=== PATIENT | female | born 1995 | race Caucasian/White ===

== ENCOUNTER 2024-11-27 16:21 | Emergency (ER) | payer MEDICAID, SELFPAY ==
[2024-11-27 16:22] VITALS: BMI 50.3
[2024-11-27 16:37] VITALS: BP 116/88; PULSE 123; RESP 18; TEMP 36.6; O2SAT 96
--- NOTE | 2024-11-27 16:37 | XR_ITS ---
Examination: CT abdomen and pelvis without contrast. Coronal 3-D reconstructions. Sagittal 2-D reconstructions. Date and time of exam:November 27, 20242024 hrs. Indications: Left-sided abdominal pain vomiting and diarrhea beginning today CTDI: vol (mGy): 20.2 DLP: (mGycm): 1121 Technique: Axial images of the abdomen have been obtained, 3 mm slice thickness Intravenous contrast material has not been administered. Low dose protocols were performed. One or more of the following dose reduction techniques were used; automated exposure control, adjustment of the mA and/or KV according to patient size, use of iterative reconstruction technique. Findings: No focal liver or splenic lesions No gallstones No pancreatic or adrenal mass No renal or ureteral calculi, no hydronephrosis 18 mm fat-containing umbilical hernia Normal appendix No bowel obstruction A few loops of fluid distended small bowel No pelvic mass Urinary bladder intact Impression: Mildly fluid distended small bowel loops, consider ileitis, enteritis such as Crohn's disease, clinical correlation advised
--- NOTE | 2024-11-27 16:38 | PD.EDRME ---
Rapid Medical Screening Exam [facility] Arrival date/time: 11/27/24 16:21 29-year-old female with a history of hypertension presents to the emergency room with a chief complaint of nausea, vomiting, diarrhea, weakness, and a near syncopal episode. Patient states she has been dealing with an H. pylori infection, she has been taking antibiotics but her symptoms of gotten worse. Today she presents with 7 out of 10 left upper quadrant abdominal pain. I have greeted and performed a focused initial assessment of this patient. A comprehensive ED assessment and evaluation of the patient, analysis of all test results, and completion of the medical decision making process will be conducted by additional ED providers. Chief Complaint: Abdominal Pain Vital signs: Vital Signs Temperature 98 F 11/27/24 16:37 Pulse Rate 123 H 11/27/24 16:37 Respiratory Rate 18 11/27/24 16:37 Blood Pressure 116/88 H 11/27/24 16:37 Pulse Oximetry (%) 96 11/27/24 16:37 Oxygen Delivery Method Room Air 11/27/24 16:37 Vital signs reviewed by provider: Yes
[2024-11-27] MEDS: ONDANSETRON ODT 4 MG TABRAP PO (16:47)
[2024-11-27 17:54] LABS: Basophils # (Auto) 0.1 Thou/mm3 (0.0-0.2); Basophils % (Auto) 0 % (0-2.5); Eosinophils # (Auto) 0.1 Thou/mm3 (0.0-0.5); Eosinophils % (Auto) 1 % (0-10); Hematocrit 38.9 % (36.0-46.0); Immature Granulocytes % (Auto) 1 % (0-0); Lymphocytes # (Auto) 1.3 Thou/mm3 (1.0-4.8); Lymphocytes % (Auto) 7 % (10-50); Mean Corpuscular HGB Conc 33.4 g/dl (31.0-37.0); Mean Corpuscular Hemoglobin 28.6 pg (25.0-35.0); Mean Corpuscular Volume 86 fL (80-100); Monocytes # (Auto) 0.9 Thou/mm3 (0.0-0.8); Monocytes % (Auto) 5 % (0-12); Neutrophils # (Auto) 15.1 Thou/mm3 (1.8-7.7); Neutrophils % (Auto) 86 % (37-80); Nucleated Red Blood Cell % 0 /100 WBC (0); Platelet Count 436 Thou/mm3 (140-440); RDW Standard Deviation 43.3 fL (36.4-46.3); Red Blood Count 4.54 Miln/mm3 (4.00-5.20); White Blood Count 17.6 Thou/mm3 (3.6-11.0)
--- NOTE | 2024-11-27 18:15 | EDNOTE_ITS ---
ED Abdominal Pain RME/HPI General Chief Complaint: Abdominal Pain Stated complaint: VOMITING AND DIARRHEA, SHARP MID ABD PAIN X 9AM Time seen by provider: 11/27/24 18:13 Arrival date/time: 11/27/24 16:21 RME / HPI RME / HPI narrative: 11/27/24 16:21 29-year-old female with a history of hypertension presents to the emergency room with a chief complaint of nausea, vomiting, diarrhea, weakness, and a near syncopal episode. Patient states she has been dealing with an H. pylori infection, she has been taking antibiotics but her symptoms of gotten worse. Today she presents with 7 out of 10 left upper quadrant abdominal pain. I have greeted and performed a focused initial assessment of this patient. A comprehensive ED assessment and evaluation of the patient, analysis of all test results, and completion of the medical decision making process will be conducted by additional ED providers. This section includes all my notes and documentations, including HPI, PE, and ED course. Fermin Grossman MD HPI: 29yo female with no significant past medical history presents to the ED for a chief complaint of N/V/D x today. Patient states she's been vomiting and having diarrhea throughout the day today, reporting she started having left-sided abdominal pain around 1500. She states she started feeling dizzy and generally weak, so she came in for evaluation. She denies any fever, chills or any other associated symptoms. Reports having a history of H. Pylori 2 years ago. No other complaints reported. ROS: All negative except as documented in HPI. Physical Exam: General: Alert and oriented. No acute distress when remaining still. Eyes: Conjunctivae and lids clear. ENT: No nasal congestion. Neck: Supple. Heart: RRR. Lungs: No respiratory distress. Good air movement. No rhonchi, wheezing, rales. Abdomen: Soft and nontender. Legs: No clubbing, cyanosis, edema. Skin: Warm and dry. Neuro: Alert and oriented X 3. I reviewed all diagnostic test results. My review of the gallbladder US report is no acute findings. My review of the abdominal CT report is colitis. Blood tests and urine tests remarkable for WBC 17.6. At this point, diagnoses include colitis. Treatment here included Zofran and Cipro and Flagyl and two Tylenol #3. She started to feel a lot better. Recommended a trial of outpatient treatment. Based on my best medical judgment, made decision no further evaluation or treatm ent indicated at this time. Patient understands and agrees to the discharge instructions customized and printed, see below. Discharge Instructions from Dr. Grossman: 1. After evaluation, you have colitis, infection of your intestines. 2. Take Cipro and Flagyl to kill the germs causing your infection. 3. Your job is to stay hydrated. Zofran for nausea/vomiting. Increase oral fluid and maintain clear urine. If dark or yellow, increase oral fluid. 4. Tylenol with codeine for severe pain. 5. Some good choices are water (but not only water because it will cause electrolyte abnormalities), sports drinks like Gatorade (with less sugar content), coconut water, chicken stock, and other fluid with electrolytes (like Pedialyte). 6. See your private doctor on 12/01/2024 for recheck and further care. To make sure there is no more serious intra-abdominal condition, ask for help with more investigation not available here in the ER. Such as EGD or scoping the stomach, colonoscopy or scoping the colon, and referral to see optimization engineer. 7. Seek immediate medical care with worsening or with any concerns. Fermin Grossman MD Related Data Home Medications ?Medication ?Instructions ?Recorded ?Confirmed ferrous sulfate 325 mg (65 mg 325 mg PO DAILY 08/03/22 08/08/22 iron) tablet Previous Rx's ?Medication ?Instructions ?Recorded vitamin with calcium 1 tab PO QDAY #30 tabs 0 05/18/21 no.72-iron 27 mg-folic acid 1 mg tablet ( Vitamins Plus Low Iron) docusate sodium 100 mg capsule 100 mg PO BID #60 caps 08/09/22 (Colace) ibuprofen 600 mg tablet 600 mg PO Q6H PRN pain #90 t abs 08/09/22 labetalol 200 mg tablet 200 mg PO BID #60 tabs 08/09 lanolin 50 % topical ointment 1 applic topical TID PRN skin 08/09/22 irritation #15 tubes azithromycin 250 mg tablet See Rx Instructions PO .COM PLEX #6 09/15/22 tabs ibuprofen 600 mg tablet 600 mg PO QID PRN fever or p ain 09/15/22 #30 tabs sulfamethoxazole 800 1 tab PO BID #14 tabs 11/13/ 23 mg-trimethoprim 160 mg tablet (Bactrim DS) ibuprofen 600 mg tablet 600 mg PO Q6H PRN pain #30 t abs 02/19/24 acetaminophen 300 mg-codeine 30 mg 2 tab PO TID PRN pa in #20 tabs 11/27/24 tablet ciprofloxacin HCl 500 mg tablet 500 mg PO BID #10 tabs 11/27/24 (Cipro) metronidazole 500 mg tablet 500 mg PO BID 5 days #10 t abs 11/27/24 ondansetron 4 mg disintegrating 4 mg PO TID PRN nausea and 11/27/24 tablet vomiting 5 days #10 tabs Allergies Allergy/AdvReac Type Severity Reaction Status Date / Time penicillin G Allergy Mild RASH Verified 11/27/24 16:24 Review of Systems Review of Systems Systems Reviewed: All systems reviewed, normal except as documented Past Medical History Past Medical History NEUROLOGIC: Negative Neurological Disorders CARDIAC: Negative Cardiac Disorders or Congestive Heart Failure RESPIRATORY: Negative Chronic Obstructive Pulmonary Disease (COPD) or Asthma GASTROINTESTINAL: Negative Gastrointestinal Disorders GENITOURINARY: Negative Genitourinary Disorders or Renal Disease MUSCULOSKELETAL: Negative Musculoskeletal Disorders ENDOCRINE: Negative Endocrine Disorders, Diabetes Mellitus Type 1 or Diabetes Mellitus Type 2 HEMATOLOGIC: Positive Anemia; Negative Blood Disorders or Sickle Cell Disease OTHER HISTORY: Negative Autoimmune Disease, Anesthesia Reactions, Organ Transplant, MRSA, Clostridium Difficile or Cancer Family History FAMILY HISTORY: Positive Family Cardiac Disorders; Negative Family Psychiatric Problems, Family Respiratory Disorders, Family Gastrointestinal Problems, Family Cancer, Family Surgery or Family Anesthesia Reaction Surgical History SURGICAL: Negative Cardiac Surgery, Endocrine Surgery, Ear Surgery, Abdominal Surgery, Nephrectomy, Neurologic Surgery, Mastectomy, Section or Organ Transplant Social History SMOKING STATUS: Never smoker ED Exam Narrative Physical exam: As noted in HPI. Course Quality Measures none Orders Category Date Time Status CT abdomen pelvis wo con Stat Exams 11/27/24 16:37 Completed US gall bladder Stat Exams 11/27/24 18:47 Completed CBC Stat Lab 11/27/24 17:40 Completed CMP [Comprehensive Metabolic Panel] Stat Lab 11/27/24 17:40 Completed HCG Qualitative,Urine Stat Lab 11/27/24 20:35 Completed HCG,Qualitative Serum Stat Lab 11/27/24 17:40 Completed Lipase Stat Lab 11/27/24 17:40 Completed Magnesium Stat Lab 11/27/24 17:40 Completed UA [Urinalysis] Stat Lab 11/27/24 20:35 Completed Urine Culture Stat Lab 11/27/24 20:35 Received ACETAMINOPHEN w/COD 300-30 [Tylenol w/Cod #3] Med 11/27/24 20:58 Discontinued 2 tab PO X1 ONE Ciprofloxacin HCl [Ciprofloxacin] Med 11/27/24 20:58 Discontinued 500 mg PO X1 ONE Ondansetron Odt [Zofran Odt] Med 11/27/24 16:37 Discontinued 4 mg PO X1 ONE metroNIDAZOLE [Flagyl] Med 11/27/24 20:58 Discontinued 500 mg PO X1 ONE Vital Signs Vital signs: Vital Signs Temperature 98 F 11/27/24 16:37 Pulse Rate 123 H 11/27/24 16:37 Respiratory Rate 18 11/27/24 16:37 Blood Pressure 116/88 H 11/27/24 16:37 Pulse Oximetry (%) 96 11/27/24 16:37 Oxygen Delivery Method Room Air 11/27/24 16:37 Abdominal Pain MDM MDM Narrative MDM Narrative:: Scribe Attestation: 11/27/24 - Tiffany Hernandez am scribing for and in the presence of Dr. Grossman. Patient data External records reviewed:: [facility] previous records (Per chart review, patient was seen here on 02/19/24 for dysmenorrhea.) Clinical information provided by:: patient Social determinants that could affect healthcare access:: none Patient has the following chronic illnesses:: none How is presenting disease/condition affected by chronic disease/condition?: no chronic disease Evaluation data The following diagnostics were reviewed and interpreted by me:: lab results Lab and/or radiology exams considered but not ordered:: none Interpretation Summary: Colitis Medications / Prescriptions Medications or Prescriptions considered but not ordered:: none Medication administrations:: Medication Administration History Discontinued Medications Acetaminophen/Codeine Phosphate (Acetaminophen W/Cod 300-30 Tablet) 2 tab PO X1 ONE Stop: 11/27/24 20:59 Last Admin: 11/27/24 21:10 Dose: 2 tab Documented By: MARSHAL Ciprofloxacin (Ciprofloxacin Hcl 250 Mg Tablet) 500 mg PO X1 ONE Stop: 11/27/24 20:59 Last Admin: 11/27/24 21:09 Dose: 500 mg Documented By: MARSHAL Metronidazole (Metronidazole 250 Mg Tablet) 500 mg PO X1 ONE Stop: 11/27/24 20:59 Last Admin: 11/27/24 21:11 Dose: 500 mg Documented By: OA Ondansetron HCl (Ondansetron Odt 4 Mg Tabrap) 4 mg PO X1 ONE; Protocol Stop: 11/27/24 16:38 Last Admin: 11/27/24 16:47 Dose: 4 mg Documented By: MARSHAL Sethi and Flagyl and two Tylenol #3 Consultations Consultation(s) initiated? (list below): No Diagnosis Differential diagnosis abdominal pain: acute appendicitis, calculus of kidney, diverticulitis, endometriosis, gastroenteritis, pancreatitis and small bowel obstruction Most likely diagnosis given after review of the tests above:: Colitis Admission Indicated Admission indicated?: not indicated Explain why admission is indicated or not indicated:: No criteria for admission. Admission Request Was there a request for admission?: No Disposition Plan Disposition Plan: Discharge Discharge Attestation Discharge Attestation: The patient and all family members were given an opportunity to ask questions and understood the discharge instructions. Discharge instructions specifically effects, indications for sooner follow up or return to the emergency department, and the expected course of current diagnosis. Patient condition: Stable Discharge Plan Plan Patient Disposition: HOME (Self Care) Prescriptions/Referrals Prescriptions/Med Rec: New metronidazole 500 mg tablet 500 mg PO BID 5 Days Qty: 10 0RF acetaminophen-codeine 300-30 mg tablet 2 tab PO TID MDD 6 PRN (Reason: pain) Qty: 20 0RF ciprofloxacin HCl [Cipro] 500 mg tablet 500 mg PO BID Qty: 10 0RF ondansetron 4 mg tablet,disintegrating 4 mg PO TID PRN (Reason: nausea and vomiting) 5 Days Qty: 10 0RF No Action Vitamin Plus Low Iron 27 mg iron- 1 mg tablet 1 tab PO QDAY Qty: 30 2RF ferrous sulfate 325 mg (65 mg iron) tablet 325 mg PO DAILY Patient Comments: TAKE 1 TABLET BY MOUTH TWICE A DAY labetalol 200 mg tablet 200 mg PO BID Qty: 60 0RF docusate sodium [Colace] 100 mg capsule 100 mg PO BID Qty: 60 0RF ibuprofen 600 mg tablet 600 mg PO Q6H PRN (Reason: pain) Qty: 90 0RF lanolin 50 % ointment 1 applic topical TID PRN (Reason: skin irritation) Qty: 15 0RF azithromycin 250 mg tablet See Rx Instructions .ROUTE .COMPLEX Qty: 6 0RF Rx Instructions: For 250 mg dose pack: take 500 mg today (day 1), then 250 mg for 4 days (days 2-5) ibuprofen 600 mg tablet 600 mg PO QID PRN (Reason: fever or pain) Qty: 30 0RF sulfamethoxazole-trimethoprim [Bactrim DS] 800-160 mg tablet 1 tab PO BID Qty: 14 0RF ibuprofen 600 mg tablet 600 mg PO Q6H PRN (Reason: pain) Qty: 30 0RF Referrals: Daniel OLMOS)Angelica MD [Primary Care Provider] - In 1 week Problem List Clinical Impression: Colitis Patient/Caregiver Discharge Instructions Discharge Activity: activity as tolerated Education Materials: ED Gastroenteritis, Noninfectious, ED Gastroenteritis, Viral (Adult) Additional Instructions: Discharge Instructions from Dr. Grossman: 1. After evaluation, you have colitis, infection of your intestines. 2. Take Cipro and Flagyl to kill the germs causing your infection. 3. Your job is to stay hydrated.? Zofran for nausea/vomiting.? Increase oral fluid and maintain clear urine.? If dark or yellow, increase oral fluid. 4. Tylenol with codeine for severe pain. 5. Some good choices are water (but not only water because it will cause electrolyte abnormalities), sports drinks like Gatorade (with less sugar content), coconut water, chicken stock, and other fluid with electrolytes (like Pedialyte). 6. See your private doctor on 12/01/2024 for recheck and further care. To make sure there is no more serious intra-abdominal condition, ask for help with more investigation not available here in the ER. Such as EGD or scoping the stomach, colonoscopy or scoping the colon, and referral to see optimization engineer. 7. Seek immediate medical care with worsening or with any concerns. Print Language: Citizen Of [place] Stand Alone Forms: [employer]ha Award Info., Patient Portal Info Letter
[2024-11-27 18:19] LABS: Alanine Aminotransferase 13 U/L (10-49); Albumin/Globulin Ratio 1.4 (1.2-2.2); Alkaline Phosphatase 89 U/L (46-116); Anion Gap 9 (7-16); Aspartate Amino Transferase 14 U/L (0-34); BUN/Creatinine Ratio 20 Ratio (12-20); Bilirubin,Total 0.6 mg/dL (0.3-1.2); Blood Urea Nitrogen 18 mg/dL (9-23); Calcium 10.1 mg/dL (8.3-10.6); Calcium (Corrected) 10.1 mg/dL (8.5-10.1); Carbon Dioxide 21.8 mMol/L (20.0-31.0); Chloride 108 mMol/L (98-107); Creatinine (Component) 0.9 mg/dL (0.6-1.3); Estimated Creatinine Clearance 115.4 mL/min (>60); Globulin 3.6 gm/dL (2.3-3.5); Glucose 100 mg/dL (74-106); Lipase 40 U/L (12-53); Osmolality,Calculated 279 (275-295); Potassium 4.2 mMol/L (3.4-5.1); Sodium 139 mMol/L (136-145); Total Protein 8.6 gm/dL (5.7-8.2); eGFR > 60 See Note
--- NOTE | 2024-11-27 18:47 | XR_ITS ---
Examination: Abdomen sonogram, Limited Date and time of exam: November 27, 2024 1933 hrs. Indications: Onset right upper abdominal tenderness and pain today Technique: Real-time hinds scale transabdominal sonographic images of the upper abdomen obtained. Findings: Normal gallbladder Normal common bile duct 0.3 cm Pancreatic head 2.9 cm Hepatomegaly 20.1 cm fatty infiltration Normal hepatopedal portal venous flow Patent IVC Impression: Normal gallbladder Normal common bile duct Mild hepatomegaly, fatty liver
[2024-11-27 19:22] LABS: HCG,Qualitative Serum Negative
[2024-11-27 19:30] LABS: Magnesium 1.8 mg/dL (1.6-2.6)
[2024-11-27 20:48] LABS: Collection Type, Urine Clean Catch
[2024-11-27] MEDS: CIPROFLOXACIN HCL 250 MG TABLET 500 MG PO (21:09)
[2024-11-27] MEDS: ACETAMINOPHEN w/COD 300-30 TABLET 2 TAB PO (21:10)
[2024-11-27] MEDS: metroNIDAZOLE 250 MG TABLET 500 MG PO (21:11)
[2024-11-27 21:29] LABS: HCG Qualitative,Urine Negative
[2024-11-27 21:30] LABS: Bacteria,Urine Rare; Bilirubin,Urine Negative (Negative); Blood,Urine 2+ (Negative); Clarity,Urine Turbid (Clear/Hazy); Color,Urine Yellow (Lt Yel-Yel); Glucose, Urine Negative (Negative); Ketones,Urine Negative (Negative); Leukocyte Esterase,Urine Positive (Negative); Nitrite,Urine Negative (Negative); Protein,Urine 2+ (Neg - Trace); RBC,Urine 13 /hpf (0-3); Specific Gravity,Urine 1.032 (1.001-1.035); Squamous Epithelial Cell,Urine 16 /hpf (0-5); Urobilinogen,Urine Negative mg/dL (0.0-1.0); WBC,Urine 8 /hpf (0-5)
[2024-11-27 21:34] LABS: Sperm,Urine Present
== END 2024-11-27 23:44 | disposition home or self-care (01) ==
PROVIDERS: Nurse Practitioner Family; Emergency Provider Emergency Medicine; PCP Pediatrics
DX: K52.9 Noninfective gastroenteritis and colitis, unspecified (principal); Z86.19 Personal history of other infectious and parasitic diseases; Z88.0 Allergy status to penicillin
CPT/HCPCS: 36415; 74176; 76705; 80053; 81001; 81025; 83690; 83735; 84703; 85025; 87077; 87086; 87186; 99284; Q0162; A9270

== ENCOUNTER 2025-02-24 14:23 | Emergency (ER) | payer MEDICAID, SELFPAY ==
[2025-02-24 14:28] VITALS: BMI 34.5
[2025-02-24 14:47] VITALS: BP 123/83; PULSE 88; RESP 18; TEMP 36.9; O2SAT 98
--- NOTE | 2025-02-24 15:08 | PD.EDRME ---
Rapid Medical Screening Exam [facility]ME Arrival date/time: 02/24/25 14:23 This is a 29-year-old female that comes in with complaints of left flank pain that started today. Patient denies urinary issues. Patient states that pain starts in the lower left abdomen and radiates to the her back. Patient reports some diarrhea. Patient states that she has had this pain before and was told that she had an intestinal infection. I have greeted and performed a focused initial assessment of this patient. Initial appropriate labs ordered at this time. A comprehensive ED assessment and evaluation of the patient and analysis of all test and completion of medical decision making process will be conducted by additional ED provider. Chief Complaint: Nausea/Vomiting/Diarrhea Time Seen by Provider: 02/24/25 14:37 Vital signs: Vital Signs Temperature 98.5 F 02/24/25 14:47 Pulse Rate 88 02/24/25 14:47 Respiratory Rate 18 02/24/25 14:47 Blood Pressure 123/83 02/24/25 14:47 Pulse Oximetry (%) 98 02/24/25 14:47 Oxygen Delivery Method Room Air 02/24/25 14:47
[2025-02-24 15:34] LABS: Collection Type, Urine Voided
[2025-02-24 15:37] LABS: Basophils # (Auto) 0.1 Thou/mm3 (0.0-0.2); Basophils % (Auto) 1 % (0-2.5); Eosinophils # (Auto) 0.1 Thou/mm3 (0.0-0.5); Eosinophils % (Auto) 1 % (0-10); Hematocrit 32.8 % (36.0-46.0); Hemoglobin 11.4 g/dL (12.0-16.0); Immature Granulocytes % (Auto) 0 % (0-0); Immature Granulocytes Auto 0.03 Thou/mm3 (0.00-0.00); Lymphocytes # (Auto) 3.4 Thou/mm3 (1.0-4.8); Lymphocytes % (Auto) 31 % (10-50); Mean Corpuscular HGB Conc 34.8 g/dl (31.0-37.0); Mean Corpuscular Hemoglobin 29.3 pg (25.0-35.0); Mean Corpuscular Volume 84 fL (80-100); Monocytes # (Auto) 0.6 Thou/mm3 (0.0-0.8); Monocytes % (Auto) 5 % (0-12); Neutrophils # (Auto) 6.6 Thou/mm3 (1.8-7.7); Neutrophils % (Auto) 61 % (37-80); Nucleated Red Blood Cell % 0 /100 WBC (0); Platelet Count 368 Thou/mm3 (140-440); RDW Standard Deviation 42.7 fL (36.4-46.3); Red Blood Count 3.89 Miln/mm3 (4.00-5.20); White Blood Count 10.8 Thou/mm3 (3.6-11.0)
[2025-02-24 15:51] LABS: Bilirubin,Urine Negative (Negative); Blood,Urine 1+ (Negative); Clarity,Urine Turbid (Clear/Hazy); Color,Urine Yellow (Lt Yel-Yel); Culture Indicated,Urine Not Indicated; Glucose, Urine Negative (Negative); Ketones,Urine Negative (Negative); Leukocyte Esterase,Urine Positive (Negative); Nitrite,Urine Negative (Negative); Protein,Urine Trace (Neg - Trace); RBC,Urine 7 /hpf (0-3); Specific Gravity,Urine 1.034 (1.001-1.035); Squamous Epithelial Cell,Urine 25 /hpf (0-5); Urobilinogen,Urine Negative mg/dL (0.0-1.0); WBC,Urine 10 /hpf (0-5)
[2025-02-24 15:55] LABS: Alanine Aminotransferase 21 U/L (10-49); Albumin, Serum 4.6 gm/dL (3.5-5.0); Albumin/Globulin Ratio 1.8 (1.2-2.2); Alkaline Phosphatase 76 U/L (46-116); Anion Gap 11 (7-16); Aspartate Amino Transferase 20 U/L (0-34); BUN/Creatinine Ratio 15 Ratio (12-20); Bilirubin,Total 0.3 mg/dL (0.3-1.2); Blood Urea Nitrogen 12 mg/dL (9-23); Calcium 8.8 mg/dL (8.3-10.6); Calcium (Corrected) 8.8 mg/dL (8.5-10.1); Chloride 108 mMol/L (98-107); Creatinine (Component) 0.8 mg/dL (0.6-1.3); Estimated Creatinine Clearance 104.5 mL/min (>60); Globulin 2.6 gm/dL (2.3-3.5); Glucose 100 mg/dL (74-106); Lipase 51 U/L (12-53); Osmolality,Calculated 286 (275-295); Potassium 4.2 mMol/L (3.4-5.1); Sodium 144 mMol/L (136-145); Total Protein 7.2 gm/dL (5.7-8.2); eGFR > 60 See Note
[2025-02-24 16:26] LABS: HCG,Qualitative Serum Negative
[2025-02-24 16:56] VITALS: BP 130/87; PULSE 90; RESP 18; TEMP 36.8; O2SAT 100
--- NOTE | 2025-02-24 18:34 | XR_ITS ---
Examination: CT abdomen and pelvis without contrast. Coronal 3-D reconstructions. Sagittal 2-D reconstructions. Date and time of exam:February 24, 2025 9008 hours Comparison November 27, 2024 INDICATIONS: Onset left flank pain today CTDI: vol (mGy): 18.9 DLP: (mGycm): 1069 Technique: Axial images of the abdomen have been obtained, 3 mm slice thickness Intravenous contrast material has not been administered. Low dose protocols were performed. One or more of the following dose reduction techniques were used; automated exposure control, adjustment of the mA and/or KV according to patient size, use of iterative reconstruction technique. Findings: Hepatomegaly, 22 cm, no focal liver or splenic lesions Contracted gallbladder No pancreatic or adrenal mass No renal or ureteral calculi, no hydronephrosis Aorta normal size Normal appendix No bowel obstruction Tiny fat-containing umbilical hernia No diverticulitis No pelvic mass Moderate disc narrowing L5-S1 IMPRESSION: Hepatomegaly, 22 cm No renal or ureteral calculi, no hydronephrosis. Normal appendix No bowel obstruction or diverticulitis
--- NOTE | 2025-02-24 18:37 | PD.EDBACK ---
ED Back Injury Pain RME/HPI General Chief Complaint: Nausea/Vomiting/Diarrhea Stated Complaint: DIARRHEA, ABD PAIN Time Seen by Provider: 02/24/25 14:37 Arrival date/time: 02/24/25 14:23 RME / HPI RME / HPI Narrative: 02/24/25 14:23 This is a 29-year-old female that comes in with complaints of left flank pain that started today. Patient denies urinary issues. Patient states that pain starts in the lower left abdomen and radiates to the her back. Patient reports some diarrhea. Patient states that she has had this pain before and was told that she had an intestinal infection. I have greeted and performed a focused initial assessment of this patient. Initial appropriate labs ordered at this time. A comprehensive ED assessment and evaluation of the patient and analysis of all test and completion of medical decision making process will be conducted by additional ED provider. This section includes all my notes and documentations, including HPI, PE, and ED course. Fermin Grossman MD HPI: 29 y/o female presents to ED c/o left flank pain and several diarrhea all day today. No nausea or vomiting. Eating normally. No history of abdominal surgery. No urinary symptoms. Deep breathing and certain movement worsens the pain. Has 3 groin boys at home. No other complaints. ROS: All negative except as documented in HPI. Physical Exam: General: Alert and oriented. No acute distress when remaining still. Eyes: Conjunctivae and lids clear. ENT: No nasal congestion. Neck: Supple. Heart: RRR. Lungs: No respiratory distress. Good air movement. No rhonchi, wheezing, rales. Abdomen: Soft with equivocal left flank tenderness. Normal bowel sounds. No distension. No rebound or guarding. Back: No CVA tenderness. Skin: Warm and dry. Neuro: Alert and oriented X 3. I reviewed all diagnostic test results. My review of the Abdomen/Pelvis CT report is no acute findings. Blood tests and urine tests unremarkable. At this point, diagnoses include musculoskeletal abdominal pain. Treatment here included Tylenol with Codeine. Significant improvement noted. Based on my best medical judgment, made decision no further evaluation or treatment indicated at this time. Patient understands and agrees to the discharge instructions customized and printed, see below. Discharge Instructions from Dr. Grossman printed for you: 1. After extensive evaluation, there is no abdominal emergency. Such as appendicitis needing urgent surgery. And there is no other very serious condition, such as kidney infection or passing kidney stone. 2. Your pain is most likely originating from the outside and not from an internal organ. Abdominal wall muscle strain is common, tears in the small muscle fibers. Can take several weeks to heal completely. 3. Activity as tolerated. Apply ice or heat if helpful. Ibuprofen 800 mg every 6-8 hours today and tomorrow to decrease inflammation then as needed. Lidocaine patches and cyclobenzaprine as needed. 4. See a private doctor next week if not significantly better. 5. Seek immediate medical care with worsening or with any concerns. Fermin Grossman MD Related Data Home Medications ?Medication ?Instructions ?Recorded ?Confirmed ferrous sulfate 325 mg (65 mg 325 mg PO DAILY 08/03/22 08/08/22 iron) tablet Previous Rx's ?Medication ?Instructions ?Recorded vitamin with calcium 1 tab PO QDAY #30 tabs 05/18/21 no.72-iron 27 mg-folic acid 1 mg tablet ( Vitamins Plus Low Iron) docusate sodium 100 mg capsule 100 mg PO BID #60 caps 08/09/22 (Colace) ibuprofen 600 mg tablet 600 mg PO Q6H PRN pain #90 tabs 08/09/22 labetalol 200 mg tablet 200 mg PO BID #60 tabs 08/09/22 lanolin 50 % topical ointment 1 applic topical TID PRN skin 08/09/22 irritation #15 tubes azithromycin 250 mg tablet See Rx Instructions PO .COMPLEX #6 09/15/22 tabs ibuprofen 600 mg tablet 600 mg PO QID PRN fever or pain 09/15/22 #30 tabs sulfamethoxazole 800 1 tab PO BID #14 tabs 08/27/23 mg-trimethoprim 160 mg tablet (Bactrim DS) ibuprofen 600 mg tablet 600 mg PO Q6H PRN pain #30 tabs 02/19/24 acetaminophen 300 mg-codeine 30 mg 2 tab PO TID PRN pain #20 tabs 11/27/24 tablet ciprofloxacin HCl 500 mg tablet 500 mg PO BID #10 tabs 11/27/24 (Cipro) cyclobenzaprine 5 mg tablet 5 mg PO TID PRN muscle spasm #15 02/24/25 tabs ibuprofen 800 mg tablet 800 mg PO Q8H PRN pain #30 tabs 02/24/25 lidocaine 5 % topical patch 2 patch topical QDAY PRN pain #30 02/24/25 (Lidoderm) ea Allergies Allergy/AdvReac Type Severity Reaction Status Date / Time penicillin G Allergy Mild RASH Verified 02/24/25 14:29 Review of Systems Review of Systems Systems Reviewed: All systems reviewed, normal except as documented Past Medical History Past Medical History HEMATOLOGIC: Positive Anemia Family History FAMILY HISTORY: Positive Family Cardiac Disorders ED Exam Narrative Physical exam: Refer to HPI above. Course Quality Measures none Orders Category Date Time Status CT abdomen pelvis wo con Stat Exams 02/24/25 18:34 Completed CBC Stat Lab 02/24/25 15:17 Completed Comprehensive Metabolic Panel Stat Lab 02/24/25 15:17 Completed HCG,Qualitative Serum Stat Lab 02/24/25 15:17 Completed Lipase Stat Lab 02/24/25 15:17 Completed Urinalysis, C/S if Indicated Stat Lab 02/24/25 15:15 Completed ACETAMINOPHEN w/COD 300-30 [Tylenol w/Cod #3] Med 02/24/25 18:33 Discontinued 2 tab PO X1 ONE Vital Signs Vital signs: Vital Signs Temperature 98.5 F 02/24/25 14:47 Pulse Rate 88 02/24/25 14:47 Respiratory Rate 18 02/24/25 14:47 Blood Pressure 123/83 02/24/25 14:47 Pulse Oximetry (%) 98 02/24/25 14:47 Oxygen Delivery Method Room Air 02/24/25 14:47 Back Pain / Injury MDM Narrative MDM Narrative:: Scribe Attestation: Marlee Hernandez am scribing for and in the presence of Dr. Grossman. Provider Notation: Although this document has been carefully reviewed, there may still be some phonetic and other typographical errors.? These errors are purely grammatical due to imperfections in the software program and should not be construed in any way to? compromise the substance of the patient's medical care during this visit. 29 y/o female presents to ED c/o left flank pain and severe diarrhea x 6 hours. Patient data External records reviewed:: [facility] previous records (Reviewed prior ED records from 11/27/24. Patient was seen for Colitis.) Clinical information provided by:: patient Social determinants that could affect healthcare access:: none Patient has the following chronic illnesses:: Anemia How is presenting disease/condition affected by chronic disease/condition?: uneffected by Evaluation data The following diagnostics were reviewed and interpreted by me:: lab results and radiology exam(s) Lab and/or radiology exams considered but not ordered:: None Interpretation Summary: I reviewed all diagnostic test results. My review of the Abdomen/Pelvis CT report is no acute findings. Blood tests and urine tests unremarkable. Medications / Prescriptions Medications or Prescriptions considered but not ordered:: None Medication administrations:: Medication Administration History Discontinued Medications Acetaminophen/Codeine Phosphate (Acetaminophen W/Cod 300-30 Tablet) 2 tab PO X1 ONE Stop: 02/24/25 18:34 Last Admin: 02/24/25 19:26 Dose: 2 tab Documented By: WILL Tylenol with Codeine Consultations Consultation(s) initiated? (list below): No Diagnosis Differential diagnosis back pain/injury: lumbar radiculopathy, sciatica, strain of lumbar region, renal colic, pyelonephritis and other (Abdominal wall muscle strain, PUD, gastritis, GERD) Most likely diagnosis given after review of the tests above:: Abdominal musculoskeletal pain Admission Indicated Admission indicated?: not indicated Explain why admission is indicated or not indicated:: With significant improvement, there was no indication for admission. Admission Request Was there a request for admission?: No Disposition Plan Disposition Plan: Discharge Discharge Attestation Discharge Attestation: The patient and all family members were given an opportunity to ask questions and understood the discharge instructions. Discharge instructions specifically effects, indications for sooner follow up or return to the emergency department, and the expected course of current diagnosis. Patient condition: Stable Discharge Plan Plan Patient Disposition: HOME (Self Care) Prescriptions/Referrals Prescriptions/Med Rec: New ibuprofen 800 mg tablet 800 mg PO Q8H PRN (Reason: pain) Qty: 30 0RF lidocaine [Lidoderm] 5 % adhesive patch,medicated 2 patch topical QDAY PRN (Reason: pain) Qty: 30 0RF Rx Instructions: leave on most painful area for up to 12 hrs cyclobenzaprine 5 mg tablet 5 mg PO TID PRN (Reason: muscle spasm) Qty: 15 0RF No Action Vitamin Plus Low Iron 27 mg iron- 1 mg tablet 1 tab PO QDAY Qty: 30 2RF ferrous sulfate 325 mg (65 mg iron) tablet 325 mg PO DAILY Patient Comments: TAKE 1 TABLET BY MOUTH TWICE A DAY labetalol 200 mg tablet 200 mg PO BID Qty: 60 0RF docusate sodium [Colace] 100 mg capsule 100 mg PO BID Qty: 60 0RF ibuprofen 600 mg tablet 600 mg PO Q6H PRN (Reason: pain) Qty: 90 0RF lanolin 50 % ointment 1 applic topical TID PRN (Reason: skin irritation) Qty: 15 0RF azithromycin 250 mg tablet See Rx Instructions .ROUTE .COMPLEX Qty: 6 0RF Rx Instructions: For 250 mg dose pack: take 500 mg today (day 1), then 250 mg for 4 days (days 2-5) ibuprofen 600 mg tablet 600 mg PO QID PRN (Reason: fever or pain) Qty: 30 0RF sulfamethoxazole-trimethoprim [Bactrim DS] 800-160 mg tablet 1 tab PO BID Qty: 14 0RF ibuprofen 600 mg tablet 600 mg PO Q6H PRN (Reason: pain) Qty: 30 0RF acetaminophen-codeine 300-30 mg tablet 2 tab PO TID MDD 6 PRN (Reason: pain) Qty: 20 0RF ciprofloxacin HCl [Cipro] 500 mg tablet 500 mg PO BID Qty: 10 0RF Referrals: Chidi Lowery MD [Primary Care Provider] - In 1 week Problem List Clinical Impression: Abdominal pain Patient/Caregiver Discharge Instructions Discharge Activity: activity as tolerated Education Materials: ED Muscle Strain, Abdomen Additional Instructions: Discharge Instructions from Dr. Grossman printed for you: 1. After extensive evaluation, there is no abdominal emergency. Such as appendicitis needing urgent surgery. And there is no other very serious condition, such as kidney infection or passing kidney stone. 2. Your pain is most likely originating from the outside and not from an internal organ. Abdominal wall muscle strain is common, tears in the small muscle fibers. Can take several weeks to heal completely. 3. Activity as tolerated. Apply ice or heat if helpful. Ibuprofen 800 mg every 6-8 hours today and tomorrow to decrease inflammation then as needed. Lidocaine patches and cyclobenzaprine as needed. 4. See a private doctor next week if not significantly better. 5. Seek immediate medical care with worsening or with any concerns. Print Language: Estonian Stand Alone Forms: [employer] Award Info., Patient Portal Info Letter
[2025-02-24] MEDS: ACETAMINOPHEN w/COD 300-30 TABLET 2 TAB PO (19:26)
== END 2025-02-24 20:40 | disposition home or self-care (01) ==
PROVIDERS: Nurse Practitioner Family; Emergency Provider Emergency Medicine; PCP Family Medicine
DX: R10.9 Unspecified abdominal pain (principal); R19.7 Diarrhea, unspecified
CPT/HCPCS: 36415; 74176; 80053; 81001; 83690; 84703; 85025; 99284; A9270

== ENCOUNTER 2025-03-03 18:45 | Emergency (ER) | payer MEDICAID, SELFPAY ==
[2025-03-03 18:46] VITALS: BMI 44.8
--- NOTE | 2025-03-03 19:07 | XR_ITS ---
Examination: Knee, left , 3 views Technique: Knee AP, lateral, oblique 3 views Date and time of exam: March 03, 2025 1917 hours INDICATIONS: Patient fell today with injury to the knee, knee pain. FINDINGS: No acute fracture No dislocation No foreign body IMPRESSION: No acute fracture
[2025-03-03 19:35] VITALS: BP 136/70; PULSE 80; RESP 18; TEMP 36.9; O2SAT 99
--- NOTE | 2025-03-03 19:52 | PD.EDLOWEX ---
Lower Extremity Injury RME/HPI General Chief Complaint: Extremity Injury, Lower Stated Complaint: LEFT KNEE PAIN S/P INJURY, FELL, NO LOC Time Seen by Provider: 03/03/25 19:45 Arrival date/time: 03/03/25 18:45 29F with no significant PMH presents to ED with L knee pain after she jumped off a bleacher and landed on her feet. L knee felt like it dislocated, but then went back into place (3rd time this has ever happened). Limitations: no limitations Related Data Home Medications ?Medication ?Instructions ?Recorded ?Confirmed ferrous sulfate 325 mg (65 mg 325 mg PO DAILY 08/03/22 08/08/22 iron) tablet Previous Rx's ?Medication ?Instructions ?Recorded vitamin with calcium 1 tab PO QDAY #30 tabs 05/18/21 no.72-iron 27 mg-folic acid 1 mg tablet ( Vitamins Plus Low Iron) docusate sodium 100 mg capsule 100 mg PO BID #60 caps 08/09/22 (Colace) ibuprofen 600 mg tablet 600 mg PO Q6H PRN pain #90 tabs 08/09/22 labetalol 200 mg tablet 200 mg PO BID #60 tabs 08/09/22 lanolin 50 % topical ointment 1 applic topical TID PRN skin 08/09/22 irritation #15 tubes azithromycin 250 mg tablet See Rx Instructions PO .COMPLEX #6 09/15/22 tabs ibuprofen 600 mg tablet 600 mg PO QID PRN fever or pain 09/15/22 #30 tabs sulfamethoxazole 800 1 tab PO BID #14 tabs 08/27/23 mg-trimethoprim 160 mg tablet (Bactrim DS) ibuprofen 600 mg tablet 600 mg PO Q6H PRN pain #30 tabs 02/19/24 acetaminophen 300 mg-codeine 30 mg 2 tab PO TID PRN pain #20 tabs 11/27/24 tablet ciprofloxacin HCl 500 mg tablet 500 mg PO BID #10 tabs 11/27/24 (Cipro) cyclobenzaprine 5 mg tablet 5 mg PO TID PRN muscle spasm #15 02/24/25 tabs ibuprofen 800 mg tablet 800 mg PO Q8H PRN pain #30 tabs 02/24/25 lidocaine 5 % topical patch 2 patch topical QDAY PRN pain #30 02/24/25 (Lidoderm) ea Allergies Allergy/AdvReac Type Severity Reaction Status Date / Time penicillin G Allergy Mild RASH Verified 02/24/25 14:29 Review of Systems Review of Systems Systems Reviewed: All systems reviewed, normal except as documented Constitutional Constitutional: Reports system reviewed and no additional complaints, except as documented, Denies fever(s) and Denies headache(s) ENT Ears, Nose, Mouth, and Throat: Denies disequilibrium and Denies headache(s) Cardiovascular Cardiovascular: Reports system reviewed and no additional complaints, except as documented, Denies chest pain and Denies dyspnea Respiratory Respiratory: Reports system reviewed and no additional complaints, except as documented, Denies cough and Denies dyspnea Gastrointestinal Gastrointestinal: Reports system reviewed and no additional complaints, except as documented, Denies abdominal pain, Denies nausea and Denies vomiting Musculoskeletal Musculoskeletal: Reports as per HPI, Reports arthralgias and Reports joint swelling Neurologic Neurologic: Reports system reviewed and no additional complaints, except as documented, Denies confusion, Denies disequilibrium and Denies headache(s) Psychiatric Psychiatric: Denies confusion Past Medical History Past Medical History NEUROLOGIC: Negative Neurological Disorders CARDIAC: Negative Cardiac Disorders or Congestive Heart Failure RESPIRATORY: Negative Chronic Obstructive Pulmonary Disease (COPD) or Asthma GASTROINTESTINAL: Negative Gastrointestinal Disorders GENITOURINARY: Negative Genitourinary Disorders or Renal Disease MUSCULOSKELETAL: Negative Musculoskeletal Disorders ENDOCRINE: Negative Endocrine Disorders, Diabetes Mellitus Type 1 or Diabetes Mellitus Type 2 HEMATOLOGIC: Positive Anemia; Negative Blood Disorders or Sickle Cell Disease OTHER HISTORY: Negative Autoimmune Disease, Anesthesia Reactions, Organ Transplant, MRSA, Clostridium Difficile or Cancer Family History FAMILY HISTORY: Positive Family Cardiac Disorders; Negative Family Psychiatric Problems, Family Respiratory Disorders, Family Gastrointestinal Problems, Family Cancer, Family Surgery or Family Anesthesia Reaction Surgical History SURGICAL: Negative Cardiac Surgery, Endocrine Surgery, Ear Surgery, Abdominal Surgery, Nephrectomy, Neurologic Surgery, Mastectomy, Section or Organ Transplant Social History SMOKING STATUS: Never smoker ED Exam General Limitations: Present no limitations General appearance: Present alert and in no apparent distress Head Head exam: Present atraumatic Eye Eye exam: Present normal appearance, PERRL and EOMI ENT ENT exam: Present normal exam, normal oropharynx and mucous membranes moist Neck Neck exam: Present normal inspection, full ROM and trachea midline Chest Chest inspection: Present normal inspection and symmetric chest wall rise Respiratory Respiratory exam: Present normal lung sounds bilaterally Cardiovascular Cardiovascular exam: Present regular rate, normal rhythm and normal heart sounds Abdominal Exam Abdominal exam: Present soft and normal bowel sounds Extremities Exam Extremities exam: Present full ROM Expanded Lower Extremity Exam Knee exam: Present full ROM (L), tenderness and swelling Back Exam Back exam: Present normal inspection and full ROM Neurological Exam Neurological exam: Present alert, oriented X3 and CN II-XII intact Psychiatric Psychiatric exam: Present normal affect and normal mood Skin Skin exam: Present warm, dry, intact and normal color Course Quality Measures none Orders Category Date Time Status Crutches .NOW Care 03/03/25 19:45 Active christy wrap [Splint / Immobilizer] STAT Care 03/03/25 19:45 Active XR knee LT 3V Stat Exams 03/03/25 19:07 Completed Naproxen [Naprosyn] Med 03/03/25 19:45 Discontinued 500 mg PO X1 ONE Vital Signs Vital signs: Vital Signs Temperature 98.5 F 03/03/25 19:35 Pulse Rate 80 03/03/25 19:35 Respiratory Rate 18 03/03/25 19:35 Blood Pressure 136/70 H 03/03/25 19:35 Pulse Oximetry (%) 99 03/03/25 19:35 Oxygen Delivery Method Room Air 03/03/25 19:35 O2 at 99% on RA and WNLs Extremity Injury, Lower MDM Narrative MDM Narrative:: 29F with no significant PMH presents to ED with L knee pain after she jumped off a bleacher and landed on her feet. L knee felt like it dislocated, but then went back into place (3rd time this has ever happened). Physical exam reveals L knee tenderness and swelling. ROM intact. Patient is unable to bear much weight. Patient is afebrile, calm, and alert. XR no fx. 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 Patient data External records reviewed:: [facility] previous records Clinical information provided by:: patient Social determinants that could affect healthcare access:: none Patient has the following chronic illnesses:: none How is presenting disease/condition affected by chronic disease/condition?: no chronic disease Evaluation data The following diagnostics were reviewed and interpreted by me:: radiology exam(s) Lab and/or radiology exams considered but not ordered:: ordered Interpretation Summary: above Medications / Prescriptions Medications or Prescriptions considered but not ordered:: ordered Medication administrations:: Medication Administration History Discontinued Medications Naproxen (Naproxen 250 Mg Tablet) 500 mg PO X1 ONE Stop: 03/03/25 19:46 Last Admin: 03/03/25 20:09 Dose: 500 mg Documented By: above Consultations Consultation(s) initiated? (list below): No Diagnosis Extremity Injury, Lower Differential Diagnosis: ankle sprain and strain, acute internal derangement of knee, fracture of femur, fracture of hip, puncture wound of foot, fracture of toe and ankle fracture Most likely diagnosis given after review of the tests above:: acute internal dernagement of knee Admission Indicated Admission indicated?: not indicated Admission Request Was there a request for admission?: No Disposition Plan Disposition Plan: Discharge Discharge Attestation Discharge Attestation: The patient and all family members were given an opportunity to ask questions and understood the discharge instructions. Discharge instructions specifically effects, indications for sooner follow up or return to the emergency department, and the expected course of current diagnosis. Patient condition: Stable Discharge Plan Plan Patient Disposition: HOME (Self Care) Discharge Disposition comment: Stable Prescriptions/Referrals Prescriptions/Med Rec: No Action Vitamin Plus Low Iron 27 mg iron- 1 mg tablet 1 tab PO QDAY Qty: 30 2RF ferrous sulfate 325 mg (65 mg iron) tablet 325 mg PO DAILY Patient Comments: TAKE 1 TABLET BY MOUTH TWICE A DAY labetalol 200 mg tablet 200 mg PO BID Qty: 60 0RF docusate sodium [Colace] 100 mg capsule 100 mg PO BID Qty: 60 0RF ibuprofen 600 mg tablet 600 mg PO Q6H PRN (Reason: pain) Qty: 90 0RF lanolin 50 % ointment 1 applic topical TID PRN (Reason: skin irritation) Qty: 15 0RF ibuprofen 800 mg tablet 800 mg PO Q8H PRN (Reason: pain) Qty: 30 0RF lidocaine [Lidoderm] 5 % adhesive patch,medicated 2 patch topical QDAY PRN (Reason: pain) Qty: 30 0RF Rx Instructions: leave on most painful area for up to 12 hrs cyclobenzaprine 5 mg tablet 5 mg PO TID PRN (Reason: muscle spasm) Qty: 15 0RF azithromycin 250 mg tablet See Rx Instructions .ROUTE .COMPLEX Qty: 6 0RF Rx Instructions: For 250 mg dose pack: take 500 mg today (day 1), then 250 mg for 4 days (days 2-5) ibuprofen 600 mg tablet 600 mg PO QID PRN (Reason: fever or pain) Qty: 30 0RF sulfamethoxazole-trimethoprim [Bactrim DS] 800-160 mg tablet 1 tab PO BID Qty: 14 0RF ibuprofen 600 mg tablet 600 mg PO Q6H PRN (Reason: pain) Qty: 30 0RF acetaminophen-codeine 300-30 mg tablet 2 tab PO TID MDD 6 PRN (Reason: pain) Qty: 20 0RF ciprofloxacin HCl [Cipro] 500 mg tablet 500 mg PO BID Qty: 10 0RF Referrals: Chidi Lowery MD [Primary Care Provider] - In 1 week Problem List Clinical Impression: Acute internal derangement of knee Patient/Caregiver Discharge Instructions Education Materials: How Your Knee Works Additional Instructions: Please follow-up with PCP within 24-48 hours and return immediately if symptoms worsen. If problem persists, recommend outpatient PT and/or MRI follow-up. In the meantime, rest, use ice/heat, and/or compression. Print Language: Citizen Of [place] Stand Alone Forms: Patient Portal Info Letter PA/POWER TRUCK DRIVER Supervising Physician PA/POWER TRUCK DRIVER Supervising Physician: Dr. Gagnon
[2025-03-03] MEDS: NAPROXEN 250 MG TABLET 500 MG PO (20:09)
== END 2025-03-03 21:21 | disposition home or self-care (01) ==
PROVIDERS: Emergency Provider Emergency Medicine; PCP Family Medicine
DX: M23.92 Unspecified internal derangement of left knee (principal)
CPT/HCPCS: 73562; 99283; A9270

== ENCOUNTER 2025-07-23 08:56 | Emergency (ER) | payer MEDICAID, SELFPAY ==
[2025-07-23 08:56] VITALS: BMI 44.8
[2025-07-23 09:27] VITALS: BP 138/91; PULSE 83; RESP 19; TEMP 36.7; O2SAT 98
--- NOTE | 2025-07-23 09:29 | XR_ITS ---
EXAMINATION: PA lateral chest 2 views TECHNIQUE: Upright PA lateral chest 2 views Date and time: July 23, 2025, 1002 hours INDICATIONS: Coughing shortness of breath beginning 2 weeks ago FINDINGS: Normal heart size The lungs are clear. The osseous structures are intact. IMPRESSION: No active disease
--- NOTE | 2025-07-23 09:29 | EDNOTE_ITS ---
Upper Respiratory Inf. RME/HPI General Chief Complaint: Flu Like Symptoms Stated Complaint: DIFF BREATHING COUGH, CHILLS COLD, SORE THROAT Time Seen by Provider: 07/23/25 09:00 Arrival date/time: 07/23/25 08:56 30-year-old female presents to the emergency department due to complaints of headache, cough, congestion, sore throat and sinus pressure ongoing for the last 2 to 3 days reports nothing symptoms better or worse quality aching nature no radiation of symptom severity moderate reports no treatment prior to arrival. Limitations: no limitations Related Data Home Medications ?Medication ?Instructions ?Recorded ?Confirmed ferrous sulfate 325 mg (65 mg 325 mg PO DAILY 08/03/22 08/08/22 iron) tablet Previous Rx's ?Medication ?Instructions ?Recorded vitamins with calcium 1 tab PO QDAY #30 tabs 05/18/21 no.72-iron 27 mg-folic acid 1 mg tablet ( Vitamins Plus Low Iron) docusate sodium 100 mg capsule 100 mg PO BID #60 caps 08/09/22 (Colace) ibuprofen 600 mg tablet 600 mg PO Q6H PRN pain #90 t abs 08/09/22 labetalol 200 mg tablet 200 mg PO BID #60 tabs 08/09 lanolin 50 % topical ointment 1 applic topical TID PRN skin 08/09/22 irritation #15 tubes azithromycin 250 mg tablet See Rx Instructions PO .COM PLEX #6 09/15/22 tabs ibuprofen 600 mg tablet 600 mg PO QID PRN fever or p ain 09/15/22 #30 tabs sulfamethoxazole 800 1 tab PO BID #14 tabs mg-trimethoprim 160 mg tablet (Bactrim DS) ibuprofen 600 mg tablet 600 mg PO Q6H PRN pain #30 t abs 02/19/24 acetaminophen 300 mg-codeine 30 mg 2 tab PO TID PRN pa in #20 tabs 11/27/24 tablet ciprofloxacin HCl 500 mg tablet 500 mg PO BID #10 tabs 11/27/24 (Cipro) cyclobenzaprine 5 mg tablet 5 mg PO TID PRN muscle spa sm #15 02/24/25 tabs ibuprofen 800 mg tablet 800 mg PO Q8H PRN pain #30 t abs 02/24/25 lidocaine 5 % topical patch 2 patch topical QDAY PRN p ain #30 02/24/25 (Lidoderm) ea doxycycline hyclate 100 mg capsule 100 mg PO BID 7 day s #14 caps 07/23/25 ibuprofen 600 mg tablet 600 mg PO Q6H #30 tabs 07/23 Allergies Allergy/AdvReac Type Severity Reaction Status Date / Time penicillin G Allergy Mild RASH Verified 07/23/25 08:58 Review of Systems Review of Systems Systems Reviewed: All systems reviewed, normal except as documented Constitutional Constitutional: Reports system reviewed and no additional complaints, except as documented, Reports fatigue, Denies fever(s), Reports headache(s) and Reports weakness Eyes Eyes: Reports system reviewed and no additional complaints, except as documented and Denies blurry vision ENT Ears, Nose, Mouth, and Throat: Reports system reviewed and no additional complaints, except as documented, Reports headache(s), Reports nasal congestion, Reports nasal discharge, Reports sinus pressure and Reports sore throat Cardiovascular Cardiovascular: Reports system reviewed and no additional complaints, except as documented, Denies chest pain and Denies dyspnea Respiratory Respiratory: Reports system reviewed and no additional complaints, except as documented, Reports chest congestion, Reports cough and Denies dyspnea Gastrointestinal Gastrointestinal: Reports system reviewed and no additional complaints, except as documented and Denies abdominal pain Integumentary/Breasts Skin/Breast: Reports system reviewed and no additional complaints, except as documented and Denies rash Neurologic Neurologic: Reports system reviewed and no additional complaints, except as documented, Reports as per HPI, Reports headache(s) and Reports weakness Endocrine Endocrine: Reports fatigue Past Medical History Past Medical History NEUROLOGIC: Negative Neurological Disorders CARDIAC: Negative Cardiac Disorders or Congestive Heart Failure RESPIRATORY: Negative Chronic Obstructive Pulmonary Disease (COPD) or Asthma GASTROINTESTINAL: Negative Gastrointestinal Disorders GENITOURINARY: Negative Genitourinary Disorders or Renal Disease MUSCULOSKELETAL: Negative Musculoskeletal Disorders ENDOCRINE: Negative Endocrine Disorders, Diabetes Mellitus Type 1 or Diabetes Mellitus Type 2 HEMATOLOGIC: Positive Anemia; Negative Blood Disorders or Sickle Cell Disease OTHER HISTORY: Negative Autoimmune Disease, Anesthesia Reactions, Organ Transplant, MRSA, Clostridium Difficile or Cancer Family History FAMILY HISTORY: Positive Family Cardiac Disorders; Negative Family Psychiatric Problems, Family Respiratory Disorders, Family Gastrointestinal Problems, Family Cancer, Family Surgery or Family Anesthesia Reaction Surgical History SURGICAL: Negative Cardiac Surgery, Endocrine Surgery, Ear Surgery, Abdominal Surgery, Nephrectomy, Neurologic Surgery, Mastectomy, Section or Organ Transplant Social History SMOKING STATUS: Never smoker ED Exam General Limitations: Present no limitations General appearance: Present alert and in no apparent distress Head Head exam: Present atraumatic Eye Eye exam: Present normal appearance, PERRL and EOMI ENT ENT exam: Present normal exam, normal oropharynx and mucous membranes moist Neck Neck exam: Present normal inspection, full ROM and trachea midline Chest Chest inspection: Present normal inspection and symmetric chest wall rise Respiratory Respiratory exam: Present normal lung sounds bilaterally Cardiovascular Cardiovascular exam: Present regular rate, normal rhythm and normal heart sounds Abdominal Exam Abdominal exam: Present soft and normal bowel sounds Extremities Exam Extremities exam: Present normal inspection and full ROM Back Exam Back exam: Present normal inspection and full ROM Neurological Exam Neurological exam: Present alert, oriented X3 and CN II-XII intact Psychiatric Psychiatric exam: Present normal affect and normal mood Skin Skin exam: Present warm, dry, intact and normal color Course Quality Measures none Orders Category Date Time Status Bedside COVID-19 Antigen Test NOW Care 07/23/25 09:29 Completed XR chest 2V Stat Exams 07/23/25 09:29 Completed FLU A&B [Influenza A & B Rapid Panel] Stat Lab 07/23/25 09:30 Completed Strep A Rapid Stat Lab 07/23/25 09:30 Completed Vital Signs Vital signs: Vital Signs Temperature 98.1 F 07/23/25 09:27 Pulse Rate 83 07/23/25 09:27 Respiratory Rate 19 07/23/25 09:27 Blood Pressure 138/91 H 07/23/25 09:27 Pulse Oximetry (%) 98 07/23/25 09:27 Oxygen Delivery Method Room Air 07/23/25 09:27 O2 saturation 98% room air within normal limits Upper Respiratory Infection MDM Narrative MDM Narrative:: 30-year-old female presents to the emergency department due to complaints of headache, cough, congestion, sore throat and sinus pressure ongoing for the last 2 to 3 days reports nothing symptoms better or worse quality aching nature no radiation of symptom severity moderate reports no treatment prior to arrival. On exam patient well-appearing patient does not appear ill or toxic no acute distress Patient has sinus pressure and sinus pain Lab work imaging obtained no acute emergent findings noted Symptoms consistent with sinusitis Patient patient is medically show symptoms persist or worsen patient instructed to return for reevaluation Patient data External records reviewed:: [facility] previous records Clinical information provided by:: patient Social determinants that could affect healthcare access:: none Patient has the following chronic illnesses:: None How is presenting disease/condition affected by chronic disease/condition?: no chronic disease Evaluation data The following diagnostics were reviewed and interpreted by me:: lab results and radiology exam(s) Lab and/or radiology exams considered but not ordered:: Labs radiology obtained Interpretation Summary: Reviewed by me Medications / Prescriptions Medications or Prescriptions considered but not ordered:: Rx given Medication administrations:: Rx given Consultations Consultation(s) initiated? (list below): No Diagnosis Upper Respiratory Differential Diagnosis: upper respiratory infection, otitis media and viral infection Most likely diagnosis given after review of the tests above:: URI Admission Indicated Admission indicated?: not indicated Admission Request Was there a request for admission?: No Disposition Plan Disposition Plan: Discharge Discharge Attestation Discharge Attestation: The patient and all family members were given an opportunity to ask questions and understood the discharge instructions. Discharge instructions specifically effects, indications for sooner follow up or return to the emergency department, and the expected course of current diagnosis. Patient condition: Stable Discharge Plan Plan Patient Disposition: HOME (Self Care) Discharge Disposition comment: Stable Prescriptions/Referrals Prescriptions/Med Rec: New doxycycline hyclate 100 mg capsule 100 mg PO BID 7 Days Qty: 14 0RF ibuprofen 600 mg tablet 600 mg PO Q6H Qty: 30 0RF No Action Vitamin Plus Low Iron 27 mg iron- 1 mg tablet 1 tab PO QDAY Qty: 30 2RF ferrous sulfate 325 mg (65 mg iron) tablet 325 mg PO DAILY Patient Comments: TAKE 1 TABLET BY MOUTH TWICE A DAY labetalol 200 mg tablet 200 mg PO BID Qty: 60 0RF docusate sodium [Colace] 100 mg capsule 100 mg PO BID Qty: 60 0RF ibuprofen 600 mg tablet 600 mg PO Q6H PRN (Reason: pain) Qty: 90 0RF lanolin 50 % ointment 1 applic topical TID PRN (Reason: skin irritation) Qty: 15 0RF ibuprofen 800 mg tablet 800 mg PO Q8H PRN (Reason: pain) Qty: 30 0RF lidocaine [Lidoderm] 5 % adhesive patch,medicated 2 patch topical QDAY PRN (Reason: pain) Qty: 30 0RF Rx Instructions: leave on most painful area for up to 12 hrs cyclobenzaprine 5 mg tablet 5 mg PO TID PRN (Reason: muscle spasm) Qty: 15 0RF azithromycin 250 mg tablet See Rx Instructions .ROUTE .COMPLEX Qty: 6 0RF Rx Instructions: For 250 mg dose pack: take 500 mg today (day 1), then 250 mg for 4 days (days 2-5) ibuprofen 600 mg tablet 600 mg PO QID PRN (Reason: fever or pain) Qty: 30 0RF sulfamethoxazole-trimethoprim [Bactrim DS] 800-160 mg tablet 1 tab PO BID Qty: 14 0RF ibuprofen 600 mg tablet 600 mg PO Q6H PRN (Reason: pain) Qty: 30 0RF acetaminophen-codeine 300-30 mg tablet 2 tab PO TID MDD 6 PRN (Reason: pain) Qty: 20 0RF ciprofloxacin HCl [Cipro] 500 mg tablet 500 mg PO BID Qty: 10 0RF Referrals: Chidi Lowery MD [Primary Care Provider, Family Practice] - In 1 week Problem List Clinical Impression: Acute sinusitis Patient/Caregiver Discharge Instructions Education Materials: Causes of Sinusitis Additional Instructions: Please follow up with your primary care doctor in the next 24-48hrs for any worsening symptoms return here immediately Print Language: Spanish Stand Alone Forms: Radha Award Info., Work/School Release, Patient Portal Info Letter PA/TABLE AND DESK FINISHER Supervising Physician PA/TABLE AND DESK FINISHER Supervising Physician: Dr. morocho
[2025-07-23 09:59] LABS: Strep A Rapid Negative (Negative)
[2025-07-23 10:03] LABS: Influenza A Ag Negative; Influenza B Ag Negative
== END 2025-07-23 12:25 | disposition home or self-care (01) ==
PROVIDERS: Nurse Practitioner Primary Care; Emergency Provider Family Medicine; PCP Family Medicine
DX: J01.90 Acute sinusitis, unspecified (principal); R05.9 Cough, unspecified; R06.02 Shortness of breath
CPT/HCPCS: 71046; 87502; 87651; 87811; 99283

== ENCOUNTER 2025-09-01 11:17 | Emergency (ER) | payer MEDICAID, SELFPAY ==
[2025-09-01 11:30] VITALS: BP 134/88; PULSE 111; RESP 18; TEMP 36.9; O2SAT 97; BMI 45.7
--- NOTE | 2025-09-01 12:07 | PD.EDABDPN ---
ED Abdominal Pain RME/HPI General Chief Complaint: Nausea/Vomiting/Diarrhea Stated complaint: VOMITING SINCE YESTERDAY 9AM Arrival date/time: 09/01/25 11:17 RME / HPI RME / HPI narrative: See [facility] for Dr. Grossman's HPI documentation. Related Data Home Medications ?Medication ?Instructions ?Recorded ?Confirmed ferrous sulfate 325 mg (65 mg 325 mg PO DAILY 08/03/22 08/08/22 iron) tablet Previous Rx's ?Medication ?Instructions ?Recorded vitamins with calcium 1 tab PO QDAY #30 tabs 05/18/21 no.72-iron 27 mg-folic acid 1 mg tablet ( Vitamins Plus Low Iron) docusate sodium 100 mg capsule 100 mg PO BID #60 caps 08/09/22 (Colace) ibuprofen 600 mg tablet 600 mg PO Q6H PRN pain #90 tabs 08/09/22 labetalol 200 mg tablet 200 mg PO BID #60 tabs 08/09/22 lanolin 50 % topical ointment 1 applic topical TID PRN skin 08/09/22 irritation #15 tubes azithromycin 250 mg tablet See Rx Instructions PO .COMPLEX #6 09/15/22 tabs ibuprofen 600 mg tablet 600 mg PO QID PRN fever or pain 09/15/22 #30 tabs sulfamethoxazole 800 1 tab PO BID #14 tabs 08/27/23 mg-trimethoprim 160 mg tablet (Bactrim DS) ibuprofen 600 mg tablet 600 mg PO Q6H PRN pain #30 tabs 02/19/24 acetaminophen 300 mg-codeine 30 mg 2 tab PO TID PRN pain #20 tabs 11/27/24 tablet ciprofloxacin HCl 500 mg tablet 500 mg PO BID #10 tabs 11/27/24 (Cipro) cyclobenzaprine 5 mg tablet 5 mg PO TID PRN muscle spasm #15 02/24/25 tabs ibuprofen 800 mg tablet 800 mg PO Q8H PRN pain #30 tabs 02/24/25 lidocaine 5 % topical patch 2 patch topical QDAY PRN pain #30 02/24/25 (Lidoderm) ea ibuprofen 600 mg tablet 600 mg PO Q6H #30 tabs 07/23/25 acetaminophen 300 mg-codeine 30 mg 2 tab PO Q8H PRN pain #10 tabs 09/01/25 tablet ondansetron 4 mg disintegrating 4 mg PO TID PRN nausea and 09/01/25 tablet vomiting 30 days #10 tabs Allergies Allergy/AdvReac Type Severity Reaction Status Date / Time penicillin G Allergy Mild RASH Verified 09/01/25 11:20 Review of Systems Review of Systems Systems Reviewed: All systems reviewed, normal except as documented Past Medical History Past Medical History HEMATOLOGIC: Positive Anemia Family History FAMILY HISTORY: Positive Family Cardiac Disorders Social History SMOKING STATUS: Never smoker ED Exam Narrative Physical exam: See [facility] for Dr. Grossman's physical exam documentation. Course Quality Measures none Orders Category Date Time Status Saline [Insert IV] NOW Care 09/01/25 12:[address] abdomen pelvis wo con Stat Exams 09/01/25 12:09 Completed US gall bladder Stat Exams 09/01/25 12:09 Completed Amylase Stat Lab 09/01/25 12:18 Completed Beta Hydroxybutyrate Stat Lab 09/01/25 12:18 Completed Bilirubin,Direct Stat Lab 09/01/25 12:18 Completed CBC Stat Lab 09/01/25 12:18 Completed CMP [Comprehensive Metabolic Panel] Stat Lab 09/01/25 12:18 Completed HCG,Qualitative Serum Stat Lab 09/01/25 12:18 Completed Hemoglobin A1C [Glycohemoglobin w (eAG)] Stat Lab 09/01/25 12:18 Completed Lipase Stat Lab 09/01/25 12:18 Completed Magnesium Stat Lab 09/01/25 12:18 Completed TSH [Thyroid Stimulating Hormone] Stat Lab 09/01/25 12:18 Completed UA, C/S IF [Urinalysis, C/S if Indicated] Stat Lab 09/01/25 13:53 Completed Famotidine Inj [Pepcid Inj] Med 09/01/25 12:09 Discontinued 20 mg IVP X1 ONE Ketorolac Inj [Toradol Inj] Med 09/01/25 12:08 Discontinued 30 mg IVP X1 ONE Morphine* Inj Med 09/01/25 12:08 Discontinued 4 mg IV X1 ONE Ondansetron Inj [Zofran Inj] Med 09/01/25 12:08 Discontinued 4 mg IVP X1 ONE Pantoprazole Inj [Protonix Inj] Med 09/01/25 12:09 Discontinued 40 mg IVP X1 ONE Sodium Chloride 0.9% 1000 ml [Ns] 1,000 ml Med 09/01/25 12:08 Discontinued IV 999 mls/hr Sodium Chloride 0.9% 1000 ml [Ns] 1,000 ml Med 09/01/25 13:28 Discontinued IV 999 mls/hr Vital Signs Vital signs: Vital Signs Temperature 98.5 F 09/01/25 11:30 Pulse Rate 111 H 09/01/25 11:30 Respiratory Rate 18 09/01/25 11:30 Blood Pressure 134/88 H 09/01/25 11:30 Pulse Oximetry (%) 97 09/01/25 11:30 Oxygen Delivery Method Room Air 09/01/25 11:30 Pulse ox is 97% on room air which is adequate. Abdominal Pain MDM MDM Narrative MDM Narrative:: This section includes all my notes and documentations, including HPI, PE, and ED course. Fermin Grossman MD HPI: 30-year-old female here with vomiting and abdominal pain. After taking full dose of Wegovy yesterday. None for many years. No other complaints. ROS: All negative except as documented in HPI. Physical Exam: General: Alert and oriented. Appears uncomfortable. Eyes: Conjunctivae and lids clear. ENT: No nasal congestion. Neck: Supple. Heart: RRR. Lungs: No respiratory distress. Good air movement. No rhonchi, wheezing, rales. Abdomen: Soft with diffuse tenderness, difficult to localize. Normal bowel sounds. No distension. No rebound or guarding. Back: No CVA tenderness. Skin: Warm and dry. Neuro: Alert and oriented X 3. I reviewed all diagnostic test results: My review of the CT abdomen/pelvis report is: No acute process. My review of the US gallbladder report is: NAD. Blood tests and urine tests unremarkable. At this point, diagnoses include: Adverse reaction to Wegovy. Treatment here included: IVF Zofran IV Toradol IV Morphine IV Pantoprazole IV Famotidine IV Significant improvement noted. Recommended supporive care. Based on my best medical judgment, made decision no further evaluation or treatment indicated at this time. Patient understands and agrees to the discharge instructions customized and printed, see below. Discharge Instructions from Dr. Grossman printed for you: 1. After extensive evaluation, there is no emergency. Such as appendicitis or bowel obstruction, needing urgent surgery. 2. Your symptoms are due to taking too much Wegovy to start. Avoid Wegovy until cleared by a doctor taking care of you. 3. Clear liquid diet for 24 hours. Then advance diet as tolerated. 4. For good hydration, increase oral fluid and maintain clear urine. If dark or yellow, increase oral fluid. Zofran for nausea/vomiting. 5. Tylenol with codeine for severe pain. 6. See a private doctor on 09/03/2025 for recheck. Ask to review all test results and official radiology reports, to make sure you receive all necessary follow-ups and monitoring. 7. Seek immediate medical care with worsening or with any concerns. Fermin Grossman MD Patient data External records reviewed:: [facility] previous records Clinical information provided by:: patient Social determinants that could affect healthcare access:: none Patient has the following chronic illnesses:: Anemia How is presenting disease/condition affected by chronic disease/condition?: uneffected by Evaluation data The following diagnostics were reviewed and interpreted by me:: lab results and radiology exam(s) Lab and/or radiology exams considered but not ordered:: None Interpretation Summary: I reviewed all diagnostic test results: My review of the CT abdomen/pelvis report is: No acute process. My review of the US gallbladder report is: NAD. Blood tests and urine tests unremarkable. Medications / Prescriptions Medications or Prescriptions considered but not ordered:: None Medication administrations:: Medication Administration History Discontinued Medications Famotidine (Famotidine Inj 10 Mg/Ml Vial 2 Ml) 20 mg IVP X1 ONE Stop: 09/01/25 12:10 Last Admin: 09/01/25 13:00 Dose: 20 mg Documented By: BY Sodium Chloride (Ns) 1,000 mls @ 999 mls/hr IV .Q1H1M ONE Stop: 09/01/25 13:08 Last Infusion: 09/01/25 14:44 Dose: Infused Documented By: Admin: 09/01/25 12:56 Dose: 999 mls/hr Documented By: BY Sodium Chloride (Ns) 1,000 mls @ 999 mls/hr IV .Q1H1M ONE Stop: 09/01/25 14:28 Last Admin: 09/01/25 14:15 Dose: 999 mls/hr Documented By: BY Ketorolac Tromethamine (Ketorolac Inj 30 Mg/Ml Vial) 30 mg IVP X1 ONE Stop: 09/01/25 12:09 Last Admin: 09/01/25 12:57 Dose: 30 mg Documented By: BY Morphine Sulfate (Morphine Sulf Inj 4 Mg/Ml Vial) 4 mg IV X1 ONE Stop: 09/01/25 12:09 Last Admin: 09/01/25 14:15 Dose: Not Given Documented By: BY Non-Admin Reason: Patient Refused Ondansetron HCl (Ondansetron Inj 2 Mg/Ml Inj 2 Ml) 4 mg IVP X1 ONE; Protocol Stop: 09/01/25 12:09 Last Admin: 09/01/25 12:59 Dose: 4 mg Documented By: BY Pantoprazole Sodium (Pantoprazole Inj 40 Mg Vial) 40 mg IVP X1 ONE Stop: 09/01/25 12:10 Last Admin: 09/01/25 12:57 Dose: 40 mg Documented By: BY Treatment here included: IVF Zofran IV Toradol IV Morphine IV Pantoprazole IV Famotidine IV Consultations Consultation(s) initiated? (list below): No Diagnosis Differential diagnosis abdominal pain: abdominal pain, constipation, diverticulitis and gastroenteritis Most likely diagnosis given after review of the tests above:: Adverse drug reaction Admission Indicated Admission indicated?: not indicated Explain why admission is indicated or not indicated:: With significant improvement and no condition needing emergent intervention, there was no indication for admission. Admission Request Was there a request for admission?: No Disposition Plan Disposition Plan: Discharge Discharge Attestation Discharge Attestation: The patient and all family members were given an opportunity to ask questions and understood the discharge instructions. Discharge instructions specifically effects, indications for sooner follow up or return to the emergency department, and the expected course of current diagnosis. Patient condition: Stable Discharge Plan Plan Patient Disposition: HOME (Self Care) Prescriptions/Referrals Prescriptions/Med Rec: New acetaminophen-codeine 300-30 mg tablet 2 tab PO Q8H MDD 6 PRN (Reason: pain) Qty: 10 0RF ondansetron 4 mg tablet,disintegrating 4 mg PO TID PRN (Reason: nausea and vomiting) 30 Days Qty: 10 0RF No Action Vitamin Plus Low Iron 27 mg iron- 1 mg tablet 1 tab PO QDAY Qty: 30 2RF ferrous sulfate 325 mg (65 mg iron) tablet 325 mg PO DAILY Patient Comments: TAKE 1 TABLET BY MOUTH TWICE A DAY labetalol 200 mg tablet 200 mg PO BID Qty: 60 0RF docusate sodium [Colace] 100 mg capsule 100 mg PO BID Qty: 60 0RF ibuprofen 600 mg tablet 600 mg PO Q6H PRN (Reason: pain) Qty: 90 0RF lanolin 50 % ointment 1 applic topical TID PRN (Reason: skin irritation) Qty: 15 0RF ibuprofen 800 mg tablet 800 mg PO Q8H PRN (Reason: pain) Qty: 30 0RF lidocaine [Lidoderm] 5 % adhesive patch,medicated 2 patch topical QDAY PRN (Reason: pain) Qty: 30 0RF Rx Instructions: leave on most painful area for up to 12 hrs cyclobenzaprine 5 mg tablet 5 mg PO TID PRN (Reason: muscle spasm) Qty: 15 0RF azithromycin 250 mg tablet See Rx Instructions .ROUTE .COMPLEX Qty: 6 0RF Rx Instructions: For 250 mg dose pack: take 500 mg today (day 1), then 250 mg for 4 days (days 2-5) ibuprofen 600 mg tablet 600 mg PO QID PRN (Reason: fever or pain) Qty: 30 0RF sulfamethoxazole-trimethoprim [Bactrim DS] 800-160 mg tablet 1 tab PO BID Qty: 14 0RF ibuprofen 600 mg tablet 600 mg PO Q6H PRN (Reason: pain) Qty: 30 0RF acetaminophen-codeine 300-30 mg tablet 2 tab PO TID MDD 6 PRN (Reason: pain) Qty: 20 0RF ciprofloxacin HCl [Cipro] 500 mg tablet 500 mg PO BID Qty: 10 0RF ibuprofen 600 mg tablet 600 mg PO Q6H Qty: 30 0RF Referrals: Chidi Lowery MD [Primary Care Provider, Family Practice] - In 1 week Problem List Clinical Impression: Adverse drug reaction Patient/Caregiver Discharge Instructions Discharge Activity: activity as tolerated Education Materials: ED Drug Reaction, Other Additional Instructions: Discharge Instructions from Dr. Grossman printed for you: 1. After extensive evaluation, there is no emergency. Such as appendicitis or bowel obstruction, needing urgent surgery. 2. Your symptoms are due to taking too much Wegovy to start. Avoid Wegovy until cleared by a doctor taking care of you. 3. Clear liquid diet for 24 hours. Then advance diet as tolerated. 4. For good hydration, increase oral fluid and maintain clear urine. If dark or yellow, increase oral fluid. Zofran for nausea/vomiting. 5. Tylenol with codeine for severe pain. 6. See a private doctor on 09/03/2025 for recheck. Ask to review all test results and official radiology reports, to make sure you receive all necessary follow-ups and monitoring. 7. Seek immediate medical care with worsening or with any concerns. Print Language: Qatari Stand Alone Forms: Radha Award Info., Patient Portal Info Letter
--- NOTE | 2025-09-01 12:09 | XR_ITS ---
Examination: Abdomen sonogram, Limited Date and time of exam: September 01, 2025, 1153 hours INDICATIONS: Vomiting right upper abdominal pain beginning 2 days ago Technique: Real-time hinds scale transabdominal sonographic images of the upper abdomen obtained. Findings: Negative for gallstones Gallbladder wall 0.42 cm no edema Common bile duct 0.3 cm Pancreatic head 2.8 cm Liver 17 cm no liver lesions Normal hepatopetal portal venous flow Patent IVC IMPRESSION: Borderline thickening gallbladder wall, clinical correlation advised If cholecystitis is a clinical consideration, suggest HIDA scan or MRCP follow-up
--- NOTE | 2025-09-01 12:09 | XR_ITS ---
Examination: CT abdomen and pelvis without contrast. Coronal 3-D reconstructions. Sagittal 2-D reconstructions. Date and time of exam: September 01, 2025 1334 hours, comparison February 24, 2025 INDICATION: Generalized abdominal pain nausea vomiting today CTDI: vol (mGy): 16.9 DLP: (mGycm): 929 Technique: Axial images of the abdomen have been obtained, 3 mm slice thickness Intravenous contrast material has not been administered. Low dose protocols were performed. One or more of the following dose reduction techniques were used; automated exposure control, adjustment of the mA and/or KV according to patient size, use of iterative reconstruction technique. Findings: No focal liver or splenic lesions No gallstones 6 No pancreatic or adrenal mass No renal or ureteral calculi, no hydronephrosis Small fat-containing umbilical hernia No pericecal inflammatory change No bowel obstruction or diverticulitis Partially retroverted uterus Moderate disc narrowing L5-S1 Urinary bladder intact IMPRESSION: No acute process in the abdomen or pelvis
[2025-09-01 12:32] LABS: Basophils # (Auto) 0.1 Thou/mm3 (0.0-0.2); Basophils % (Auto) 1 % (0-2.5); Eosinophils # (Auto) 0.1 Thou/mm3 (0.0-0.5); Eosinophils % (Auto) 1 % (0-10); Hematocrit 39.7 % (36.0-46.0); Hemoglobin 13.0 g/dL (12.0-16.0); Immature Granulocytes Auto 0.07 Thou/mm3 (0.00-0.00); Lymphocytes # (Auto) 2.6 Thou/mm3 (1.0-4.8); Lymphocytes % (Auto) 21 % (10-50); Mean Corpuscular HGB Conc 32.7 g/dl (31.0-37.0); Mean Corpuscular Hemoglobin 29.3 pg (25.0-35.0); Mean Corpuscular Volume 89 fL (80-100); Monocytes # (Auto) 0.7 Thou/mm3 (0.0-0.8); Monocytes % (Auto) 5 % (0-12); Neutrophils # (Auto) 9.1 Thou/mm3 (1.8-7.7); Neutrophils % (Auto) 72 % (37-80); Nucleated Red Blood Cell # 0.00 Thou/mm3 (0.00-0.00); Nucleated Red Blood Cell % 0 /100 WBC (0); Platelet Count 436 Thou/mm3 (140-440); RDW Standard Deviation 43.8 fL (36.4-46.3); Red Blood Count 4.44 Miln/mm3 (4.00-5.20); White Blood Count 12.6 Thou/mm3 (3.6-11.0)
[2025-09-01 12:36] LABS: Beta Hydroxybutyrate 0.2 mmol/L (<0.6)
[2025-09-01 12:46] LABS: Glucose Estimated Average 111 mg/dL (80-131); Hemoglobin A1C 5.5 % Hgb (4.8-6.0)
[2025-09-01 12:52] LABS: HCG,Qualitative Serum Negative
[2025-09-01] MEDS: SODIUM CHLORIDE 0.9% 1000 ML 1,000 ML 999 ML IV ×2 (12:56→14:15)
[2025-09-01] MEDS: KETOROLAC INJ 30 MG/ML VIAL IVP (12:57)
[2025-09-01] MEDS: ONDANSETRON INJ 2 MG/ML INJ 2 ML 4 MG IVP (12:59)
[2025-09-01 13:00] LABS: Alanine Aminotransferase 18 U/L (10-49); Albumin, Serum 5.3 gm/dL (3.5-5.0); Albumin/Globulin Ratio 1.7 (1.2-2.2); Alkaline Phosphatase 81 U/L (46-116); Amylase 217 U/L (30-118); Anion Gap 11 (7-16); Aspartate Amino Transferase 18 U/L (0-34); BUN/Creatinine Ratio 10 Ratio (12-20); Bilirubin,Direct 0.2 mg/dL (0.0-0.3); Bilirubin,Total 0.6 mg/dL (0.3-1.2); Blood Urea Nitrogen 10 mg/dL (9-23); Calcium 10.1 mg/dL (8.3-10.6); Calcium (Corrected) 10.1 mg/dL (8.5-10.1); Carbon Dioxide 25.4 mMol/L (20.0-31.0); Chloride 104 mMol/L (98-107); Creatinine (Component) 1.0 mg/dL (0.6-1.3); Estimated Creatinine Clearance 97.0 mL/min (>60); Globulin 3.2 gm/dL (2.3-3.5); Glucose 91 mg/dL (74-106); Lipase 138 U/L (12-53); Magnesium 2.2 mg/dL (1.6-2.6); Osmolality,Calculated 278 (275-295); Potassium 4.5 mMol/L (3.4-5.1); Sodium 140 mMol/L (136-145); Thyroid Stimulating Hormone 3.79 uIU/mL (0.55-4.78); Total Protein 8.5 gm/dL (5.7-8.2); eGFR > 60 See Note
[2025-09-01] MEDS: FAMOTIDINE INJ 10 MG/ML VIAL 2 ML 20 MG IVP (13:00)
[2025-09-01 13:56] VITALS: BP 130/74; PULSE 89; TEMP 37; O2SAT 98
[2025-09-01 14:11] LABS: Collection Type, Urine Clean Catch
[2025-09-01 14:24] LABS: Bacteria,Urine Rare; Bilirubin,Urine Negative (Negative); Blood,Urine 1+ (Negative); Color,Urine Yellow (Lt Yel-Yel); Culture Indicated,Urine Contaminated; Glucose, Urine Negative (Negative); Hyaline Casts,Urine < 1 /hpf (0-1); Ketones,Urine Negative (Negative); Leukocyte Esterase,Urine Positive (Negative); Nitrite,Urine Negative (Negative); PH,Urine 6.0 (5.0-7.0); Protein,Urine 1+ (Neg - Trace); RBC,Urine 8 /hpf (0-3); Specific Gravity,Urine 1.027 (1.001-1.035); Squamous Epithelial Cell,Urine 19 /hpf (0-5); Urobilinogen,Urine Negative mg/dL (0.0-1.0); WBC,Urine 23 /hpf (0-5)
[2025-09-01 14:33] LABS: Clarity,Urine Hazy (Clear/Hazy)
[2025-09-01 15:22] VITALS: BP 127/93; PULSE 90; RESP 18; O2SAT 100
== END 2025-09-01 15:29 | disposition home or self-care (01) ==
PROVIDERS: Emergency Provider Emergency Medicine; PCP Family Medicine
DX: R11.2 Nausea with vomiting, unspecified (principal); T50.995A Adverse effect of other drugs, medicaments and biological substances, initial encounter; R10.9 Unspecified abdominal pain
CPT/HCPCS: 36415; 74176; 76705; 80053; 81001; 82010; 82150; 82248; 83036; 83690; 83735; 84443; 84703; 85025; 96361; 96374; 96375; 99284; J1885; J2405; J2470; J3490; J7030